=== PATIENT | female | born 1980 | race Two or more races ===

== ENCOUNTER 2021-01-02 21:51 | Emergency (ER) | payer OTHER ==
[~2021-01-02] VITALS: Ht 152.4 cm; Wt 54.5 kg
[~2021-01-02 21:51] MED LIST: ADDERALL XR 2020 MG PO; ASMANEX0.24 GM; DESERYL100 MG PO; EFFEXOR XR150 MG PO; HYDROCODONE-APA1 TAB PO; KLONOPIN1 MG PO; VENTOLIN HFA18 GM INH
[2021-01-02 21:55] VITALS: Ht 152.4 cm; Wt 54.5 kg
[2021-01-02 22:17] LABS: BASOPHILS 0.5 % (0-2); EOSINOPHILS 0.5 % (0-7); HEMATOCRIT 40.2 % (36.0-48.0); HEMOGLOBIN 13.2 g/dL (12-16); IMMATURE GRANULOCYTES 0.1 % (0-5); LYMPHOCYTE ABS# 1.82 10x3/uL (1.18-3.74); LYMPHOCYTES 17.7 % (15-50); MCH 28.8 pg (26.0-34.0); MCHC 32.8 g/dL (31.0-37.0); MCV 87.8 fL (80.0-100.0); MEAN PLATELET VOLUME 9.9 fL (7.4-10.4); MONOCYTES 8.7 % (2-11); NEUTROPHIL ABS# 7.47 10x3/uL (1.56-6.13); NEUTROPHILS 72.5 % (40-80); PLATELET COUNT 215 10x3/uL (130-400); RBC 4.58 10x6/uL (4.00-5.40); RDW 13.6 % (11.5-14.5); WBC 10.3 10x3/uL (4.8-10.8)
[2021-01-02 22:23] LABS: BILIRUBIN NEGATIVE (NEGATIVE); KETONE NEGATIVE (NEGATIVE); NITRITE NEGATIVE (NEGATIVE); UROBILINOGEN NORMAL mg/dL (< 2)
[2021-01-02 22:24] LABS: HCG URINE NEGATIVE (NEGATIVE)
[2021-01-02 22:25] LABS: ANION GAP 12.2 mmol/L (8-16); CALCIUM 8.8 mg/dL (8.5-10.1); CARBON DIOXIDE 29.6 mmol/L (21.0-32.0); CREATININE - SERUM 0.9 mg/dL (0.6-1.3); POTASSIUM - SERUM 3.8 mmol/L (3.5-5.1)
--- NOTE | 2021-01-02 22:26 | NUR ---
PATIENT IN ER WITH A RECENT SUICIDE ATTEMPT, SHE IS VERY AGITATED, NO EYE CONTACT, THREATENED TO STOP THE INTERVIEW A COUPLE OF TIMES. SHE IS ALREADY IN BLUE PAPER SCRUBS. SHE WILL BE PLACED ON 1:1. SHE SAYS THAT SHE HEARS VOICES BUT THEY ARE NOT TELLING HER TO HURT HERSELF. 1-800 NUMBER GIVEN FOR FUTURE REFRENCE.
[2021-01-02 22:30] LABS: ALBUMIN 4.4 g/dL (3.4-5.0); BILIRUBIN - TOTAL 0.38 mg/dL (0.2-1.3); MAGNESIUM - SERUM 2.2 mg/dL (1.8-2.4); PROTEIN - SERUM 7.3 g/dL (6.4-8.2)
[2021-01-02 22:30] LABS: UDS - AMPHET NEGATIVE QUAL (NEGATIVE); UDS - BARB NEGATIVE QUAL (NEGATIVE); UDS - BENZO NEGATIVE QUAL (NEGATIVE); UDS - COCAINE NEGATIVE QUAL (NEGATIVE); UDS - OPIATE NEGATIVE QUAL (NEGATIVE); UDS - PCP NEGATIVE QUAL (NEGATIVE); UDS - THC POSITIVE QUAL (NEGATIVE)
[2021-01-03] LABS: SARS-CoV-2 ANTIGEN NEGATIVE- SARS-COV-2 (NEGATIVE)
[2021-01-03 00:24] VITALS: BP 98/52
== END 2021-01-03 01:44 ==
LOC: D.ER 21:51
PROVIDERS: Family Medicine
DX: R45.851 Suicidal ideations (principal); F31.9 Bipolar disorder, unspecified; J45.909 Unspecified asthma, uncomplicated